=== PATIENT | female | born 1945 | race American Indian/Alaskan Native ===

== ENCOUNTER 2017-07-18 10:32 | Day surgery (SDC) | payer MEDICARE ==
[~2017-07-18 10:32] MED LIST: IOPIDINE ONE; MYDRIACYL ONE; NEOFRIN ONE
[2017-07-18] MEDS ORDERED: IOPIDINE OD ONE ×2 (11:15→11:21)
[2017-07-18] MEDS ORDERED: NEOFRIN OD ONE (11:15)
[2017-07-18] MEDS ORDERED: MYDRIACYL OD ONE (11:15)
[2017-07-18 11:17] VITALS: BP 138/90
== END 2017-07-18 12:22 | disposition home or self-care (01) ==
LOC: OR 10:32
PROVIDERS: ATTEND Specialist
DX: H26.491 Other secondary cataract, right eye (principal); J43.9 Emphysema, unspecified; G47.30 Sleep apnea, unspecified; M19.90 Unspecified osteoarthritis, unspecified site; F32.9 Major depressive disorder, single episode, unspecified; Z99.89 Dependence on other enabling machines and devices; Z90.710 Acquired absence of both cervix and uterus; Z90.49 Acquired absence of other specified parts of digestive tract; Z87.891 Personal history of nicotine dependence; Z98.890 Other specified postprocedural states

== ENCOUNTER 2017-07-25 11:00 | Day surgery (SDC) | payer MEDICARE ==
[2017-07-25] MEDS ORDERED: MYDRIACYL OS ONE (11:26)
[2017-07-25] MEDS ORDERED: IOPIDINE OS ONE (11:26)
[2017-07-25] MEDS ORDERED: NEOFRIN OS ONE (11:26)
[2017-07-25 15:35] VITALS: BP 124/70
== END 2017-07-25 11:01 | disposition home or self-care (01) ==
LOC: OR 11:00
PROVIDERS: ATTEND Specialist
DX: H26.492 Other secondary cataract, left eye (principal); G47.30 Sleep apnea, unspecified; J44.9 Chronic obstructive pulmonary disease, unspecified; M19.90 Unspecified osteoarthritis, unspecified site; F41.9 Anxiety disorder, unspecified; F32.9 Major depressive disorder, single episode, unspecified; Z90.710 Acquired absence of both cervix and uterus; Z99.89 Dependence on other enabling machines and devices; Z87.891 Personal history of nicotine dependence; Z90.49 Acquired absence of other specified parts of digestive tract

== ENCOUNTER 2018-01-06 07:00 | Outpatient (CLI) | payer MEDICARE ==
--- NOTE | 2018-01-27 19:17 | Magnetic Resonance Report ---
MR scan of the cranium was performed without contrast. Pulse sequences included: 1. T1 weighted sagittal and axial images without contrast 2. T2 weighted axial images 3. FLAIR axial and coronal images 4. Diffusion-weighted axial images 5. Apparent diffusion coefficient images Views of the posterior fossa showed a normal craniocervical junction. Cerebellar pontine angles were normal with normal seventh-eighth nerve complexes. Brainstem and cerebellum were normal. The ventricular system showed no dilatation or distortion. Images of the hemispheres showed multiple areas of increased signal in the periventricular white matter most consistent with araiosis. No Beth's fingers were seen. Sinuses, flow voids in the [place], orbits, pituitary and basal ganglia were normal. Impression: Abnormal MR scan of the cranium without contrast. 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
== END 2018-01-06 07:01 | disposition home or self-care (01) ==
LOC: MRI 07:00
PROVIDERS: ATTEND Specialist
DX: G43.109 Migraine with aura, not intractable, without status migrainosus (principal); Z87.891 Personal history of nicotine dependence
CPT/HCPCS: 36415; 70551; 85652